=== PATIENT | male | born 1985 ===

== ENCOUNTER 2018-02-27 14:01 | Emergency (ER) | payer SELFPAY ==
[2018-02-27 14:23] VITALS: RESP 18; TEMP 98.1
[2018-02-27] MEDS ORDERED: Amoxicillin-Clav 875-125 mg Tab PO STA (14:47)
[2018-02-27] MEDS ORDERED: TDAP Vaccine 0.5 mL Syr IM ONE (14:49)
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
--- NOTE | 2018-02-27 15:37 | RAD ---
PROCEDURE: Right Hand Radiographs. HISTORY: pain. attn 2nd digit COMPARISON: None. FINDINGS: BONES: Normal. No fracture. JOINTS: Normal. No osteoarthritic changes. SOFT TISSUES: Soft tissue swelling 2nd digit. No visulaized radiopaque/visualized foreign body. OTHER FINDINGS: None. IMPRESSION: Soft tissue swelling without acute articular or osseous abnormality.
[2018-02-27 16:14] VITALS: BP 124/70; PULSE 77; O2SAT 97
== END 2018-02-27 16:11 | disposition home or self-care (01) ==
LOC: ED 14:01
DX: M79.641 Pain in right hand (principal); L03.113 Cellulitis of right upper limb; Z23 Encounter for immunization

== ENCOUNTER → 2018-02-28 | Emergency (ER) | payer SELFPAY ==
[~2018-02-28] MED LIST: Piperacillin/Tazobact 3.375 gm 100 ML IV STA; Vancomycin 1gm in NS 250ml 1 GM/250 ML BAG IVPB STA
[2018-02-28 18:55] VITALS: BP 143/75; PULSE 87; RESP 16; TEMP 98.3; O2SAT 98
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
[2018-02-28 21:03] LABS: HEMOGLOBIN 13.4 g/dL (14.0-18.0); MEAN CELL VOLUME 89.5 fl (80.0-105.0); MEAN CORPUSCULAR HEMOGLOBIN 31.2 pg (25.0-35.0); MEAN CORPUSCULAR HGB CONC 34.8 g/dl (31.0-37.0); MEAN PLATELET VOLUME 10.7 fl (7.0-11.0); RBC 4.3 10^6/uL (3.5-6.1); RED CELL DISTRIBUTION WIDTH 12.2 % (11.5-14.5); WHITE BLOOD COUNT 12.6 10^3/ul (4.5-11.0)
[2018-02-28 21:10] LABS: ALB/GLOB RATIO 1.6 (1.1-1.8); ALBUMIN 4.4 g/dL (3.0-4.8); ALT/SGPT 40 U/L (7-56); AST/SGOT 31 U/L (17-59); BLOOD UREA NITROGEN 12 mg/dL (7-21); CALCIUM 8.9 mg/dL (8.4-10.5); GFR AFRICAN-AMERICAN > 60; GFR NON-AFRICAN AMERICAN > 60
== END | disposition left against medical advice (07) ==
LOC: ED 18:00
DX: L03.113 Cellulitis of right upper limb (principal); L08.9 Local infection of the skin and subcutaneous tissue, unspecified
CPT/HCPCS: 80053; 85027; 87040; 96365; 96366; 99281; J2543